=== PATIENT | female | born 1955 | race Two or more races ===

== ENCOUNTER 2024-05-26 09:11 | Emergency (ER) | payer OTHER ==
[~2024-05-26] VITALS: Ht 157.5 cm; Wt 61.2 kg
[2024-05-26] MEDS ORDERED: COZAAR25 MG PO (09:19)
[2024-05-26] MEDS ORDERED: ATORVASTATIN CA20 MG PO (09:19)
[2024-05-26] MEDS ORDERED: EPINEPHRINE HCL/PF 1 MG/ML AMPUL SUBCUTANEO STA (09:29)
[2024-05-26] MEDS ORDERED: DIPHENHYDRAMINE HCL 50 MG/ML VIAL 1ML IV STA (09:29)
[2024-05-26] MEDS ORDERED: 0.9 % SODIUM CHLORIDE 1,000 ML IV ONE (09:30)
[2024-05-26] MEDS ORDERED: METHYLPREDNISOLONE SOD SUCC 125 MG VIAL IV STA (09:30)
[2024-05-26] MEDS ORDERED: METHYLPREDNISOLONE SOD SUCC 125 MG VIAL ONE (09:35)
[2024-05-26] MEDS ORDERED: DIPHENHYDRAMINE HCL 50 MG/ML VIAL 1ML ONE (09:35)
[2024-05-26] MEDS ORDERED: EPINEPHRINE HCL/PF 1 MG/ML AMPUL ONE ×2 (09:35→10:27)
[2024-05-26] MEDS ORDERED: EPINEPHRINE HCL/PF 1 MG/ML AMPUL SUBCUTANEO ONE ×2 (09:45→10:30)
[2024-05-26] MEDS ORDERED: ZEPBOUND5 MG/0.5 M SQ (10:41)
[2024-05-26 10:51] LABS: HEMATOCRIT 39.2 % (36.0-45.00); HEMOGLOBIN 13.1 g/dL (12.0-15.00); MEAN CELL VOLUME 90.3 fL (80.00-100.00); MEAN CORPUSCULAR HEMOGLOBIN 30.2 pg (27.00-32.0); MEAN CORPUSCULAR HGB CONC 33.5 g/dl (32.0-36.0); PLATELET COUNT 248 K/uL (150-450); RED BLOOD COUNT 4.34 M/uL (4.00-6.00); RED CELL DISTRIBUTION WIDTH 13.6 % (11.5-14.5)
[2024-05-26] MEDS ORDERED: TRANEXAMIC ACID 100MG/1ML (1000MG) AMPUL IV ONE ×3 (11:15→19:50)
[2024-05-26] MEDS ORDERED: ONDANSETRON HCL 2 MG/ML VIAL IV ONE (11:15)
[2024-05-26] MEDS ORDERED: GLUCAGON 1 MG VIAL IV ONE (11:15)
[2024-05-26] MEDS ORDERED: ONDANSETRON HCL 2 MG/ML VIAL ONE (11:24)
[2024-05-26] MEDS ORDERED: GLUCAGON 1 MG VIAL ONE (11:25)
[2024-05-26 11:26] LABS: ALBUMIN 4.1 gm/dL (3.4-5.0); ALKALINE PHOSPHATASE 75 U/L (50-136); ALT/SGPT 25 U/L (12-78); ANION GAP 7 (10.0-20.0); AST/SGOT 16 U/L (15-37); BILIRUBIN TOTAL 0.67 mg/dL (0.3-1.2); BLOOD UREA NITROGEN 23 mg/dL (7-18); BUN CREA RATIO 27 (7.0-25.0); CALCIUM 10.1 mg/dL (8.5-10.1); CARBON DIOXIDE 28 mEq/L (21-32); CHLORIDE 110 mmol/L (98-107); CREATININE SERUM 0.85 mg/dL (0.55-1.02); GFR 66.71; GLOBULINA 3.7 G/DL (2.4-3.5); GLUCOSE FASTING 97 mg/dL (65-100); OSMOLALITY SERUM 285 MOSM/KG (275-295); POTASSIUM 4.24 mEq/L (3.5-5.1); SODIUM 141 mmol/L (136-145); TOTAL PROTEIN 7.8 gm/dL (6.4-8.2)
[2024-05-26 11:27] LABS: C-REACTIVE PROTEIN < 0.29 MG/DL (0.00-0.29)
== END 2024-05-26 20:25 | disposition home or self-care (01) ==
LOC: ER 09:13
PROVIDERS: General Practice
DX: R21 Rash and other nonspecific skin eruption (principal); T78.40XA Allergy, unspecified, initial encounter; K14.8 Other diseases of tongue; I10 Essential (primary) hypertension
CPT/HCPCS: 36415; 93041; 96365; 96366; 99282; J1200; J2405; J3490 ×2; J7030